=== PATIENT | male | born 1950 ===

== ENCOUNTER 2021-11-10 20:19 | Observation (INO) ==
[2021-11-10] MEDS ORDERED: Metoprolol Tartrate 5 mg VIAL 5 ml VIAL (1 mg/ml) IV ONE (21:57)
[2021-11-10 22:22] LABS: Hematocrit 41 % (42-52); Hemoglobin 13.9 g/dL (14.0-18.0); Mean Corpuscular HGB Conc 34 g/dL (31-36); Mean Corpuscular Hemoglobin 30 pg (27-31); Mean Corpuscular Volume 89 fL (80-94); Mean Platelet Volume 7.4 fL (7.4-10.4); Platelet Count 209 10^3/uL (150-450); Red Blood Count 4.65 10^6 /uL (4.18-5.48); Red Cell Distribution Width 14 % (10-15); White Blood Count 4.8 10^3/uL (3.5-10.8)
[2021-11-10] MEDS ORDERED: hydrALAZINE 20 mg/ml 1 ML Vial IV IV SLOW PU ONE (22:33)
[2021-11-10 22:39] LABS: ALT 11 U/L (7-52); Albumin 4.2 g/dL (3.2-5.2); Albumin/Globulin Ratio 1.6 (1-3); Alkaline Phosphatase 72 U/L (35-149); Blood Urea Nitrogen 22 mg/dL (6-24); CO2 Carbon Dioxide 28 mmol/L (22-32); Calcium 8.7 mg/dL (8.6-10.3); Chloride 107 mmol/L (101-111); Globulin 2.7 g/dL (2-4); Glucose 111 mg/dL (70-100); Magnesium 1.9 mg/dL (1.9-2.7); Sodium 141 mmol/L (135-145); Total Protein 6.9 g/dL (6.4-8.9); eGFR CKD-EPI 74.1 (>60)
[2021-11-10 22:45] LABS: AST 19 U/L (13-39); Anion Gap 6 mmol/L (2-11); Potassium 4.1 mmol/L (3.5-5.0)
[2021-11-10 22:47] LABS: Troponin I 0.03 ng/mL (<0.03)
[2021-11-10] MEDS ORDERED: hydrALAZINE 20 mg/ml 1 ML Vial IV ONE (22:50)
[2021-11-11] MEDS ORDERED: hydrALAZINE 20 mg/ml 1 ML Vial IV IV SLOW PU PRN (01:01)
[2021-11-11 02:11] LABS: Troponin I 0.04 ng/mL (<0.03)
[2021-11-11 08:12] LABS: Troponin I 0.03 ng/mL (<0.03)
[2021-11-11 08:36] LABS: Ferritin 106.3 ng/mL (24-336)
[2021-11-11 11:43] VITALS: BP 135/64
[2021-11-12 13:45] LABS: % Iron Saturation 20 % (14 - 50); Total Iron Binding Capacity 283 mcg/dL (250 - 400)
== END 2021-11-11 15:00 | disposition home or self-care (01) ==
LOC: ED 20:19 → MEDTELE 20:19 → SUATTDRO 11-11 00:46 → MEDTELE 11-11 02:47
PROVIDERS: ADMIT Internal Medicine; ATTEND Student in an Organized Health Care Education/Training Program